=== PATIENT | female | born 1985 | race Caucasian/White ===

== ENCOUNTER 2019-06-20 18:57 | Emergency (ER) | payer MEDICAID ==
[~2019-06-20] VITALS: Ht 157.5 cm; Wt 95.3 kg
[~2019-06-20 18:57] MED LIST: IBUP80TA PO; PRENTAB9 PO
[2019-06-20] MEDS ORDERED: TRAM50TA2 PO (19:11)
[2019-06-20] MEDS ORDERED: PENT10CA PO (19:11)
[2019-06-20] MEDS ORDERED: ACET-683 PO (19:11)
[2019-06-20] MEDS ORDERED: MECL12.575 PO (19:11)
[2019-06-20] MEDS ORDERED: SING10TA32 PO (19:11)
[2019-06-20] MEDS ORDERED: LEXA1TAB PO (19:11)
[2019-06-20] MEDS ORDERED: METO1TAB7 PO (19:11)
[2019-06-20 19:54] LABS: HEMATOCRIT 43.1 % (36.0-47.0); HEMOGLOBIN 14.7 g/dl (12.0-15.5); MEAN CORPUSCULAR HEMOGLOBIN 33.4 pg (27.0-33.0); MEAN CORPUSCULAR HGB CONC 34.1 g/dl (32.0-36.5); PLATELET COUNT, AUTOMATED 254 10^3/uL (150-450)
[2019-06-20 19:55] LABS: WHITE BLOOD COUNT 14.8 10^3/uL (4.0-10.0)
[2019-06-20 20:24] LABS: ALBUMIN 3.5 GM/DL (3.2-5.2); ALT/SGPT 33 U/L (12-78); BILIRUBIN,DIRECT < 0.1 MG/DL (0.0-0.2); BILIRUBIN,TOTAL 0.2 MG/DL (0.2-1.0); BLOOD UREA NITROGEN 7 MG/DL (7-18); CALCIUM LEVEL 8.9 MG/DL (8.5-10.1); CARBON DIOXIDE LEVEL 28 MEQ/L (21-32); CHLORIDE LEVEL 109 MEQ/L (98-107); CREATININE FOR GFR 0.76 MG/DL (0.55-1.30); GLOMERULAR FILTRATION RATE > 60.0 (>60); GLUCOSE, FASTING 75 MG/DL (70-100); LIPASE 76 U/L (73-393); POTASSIUM SERUM 4.2 MEQ/L (3.5-5.1); SODIUM LEVEL 140 MEQ/L (136-145); TOTAL PROTEIN 6.8 GM/DL (6.4-8.2)
[2019-06-20 20:27] LABS: BASOPHILS 1 % (0-1); EOSINOPHILS 1 % (0-3); LYMPHOCYTES 30 % (16-44); MONOCYTES 9 % (0-5); NEUTROPHILS 59 % (28-66); PLATELET ESTIMATE NORMAL (NORMAL)
[2019-06-20] MEDS ORDERED: METHOCARBAMOL 750 MG TAB PO ONE (23:00)
[2019-06-20] MEDS ORDERED: ROBA750T4 PO (23:29)
[2019-06-20] MEDS ORDERED: LIDO5DIS41 TD (23:29)
[2019-06-20 23:47] VITALS: BP 107/65
== END 2019-06-20 23:48 | disposition home or self-care (01) ==
LOC: M ED 18:57
DX: M54.5 Low back pain (principal); M62.830 Muscle spasm of back; D72.829 Elevated white blood cell count, unspecified; J45.909 Unspecified asthma, uncomplicated; Z87.442 Personal history of urinary calculi; F17.210 Nicotine dependence, cigarettes, uncomplicated; Z88.0 Allergy status to penicillin; Z88.8 Allergy status to other drugs, medicaments and biological substances; Z79.891 Long term (current) use of opiate analgesic; Z79.899 Other long term (current) drug therapy